=== PATIENT | female | born 1985 | race Caucasian/White ===

== ENCOUNTER 2020-07-04 17:20 | Emergency (ER) | payer OTHER ==
[~2020-07-04] VITALS: Ht 165.1 cm; Wt 68.0 kg
[2020-07-04 17:20] VITALS: BP 122/53
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
[2020-07-04] MEDS ORDERED: IBUPROFEN 400 MG TABLET. PO ONE (19:15)
[2020-07-04] MEDS ORDERED: CYCLOBENZAPRINE 10 MG TABLET. PO ONE (19:15)
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
[2020-07-04] MEDS ORDERED: NAPR-683 PO (20:21)
[2020-07-04] MEDS ORDERED: CYCL10TA2 PO (20:21)
== END 2020-07-04 20:38 | disposition home or self-care (01) ==
LOC: ER 17:20
DX: S16.1XXA Strain of muscle, fascia and tendon at neck level, initial encounter (principal); S06.0X0A Concussion without loss of consciousness, initial encounter; S09.8XXA Other specified injuries of head, initial encounter; R20.2 Paresthesia of skin; R11.0 Nausea; Z88.0 Allergy status to penicillin; V98.8XXA Other specified transport accidents, initial encounter; Y93.89 Activity, other specified; Y92.413 State road as the place of occurrence of the external cause; Y99.8 Other external cause status
CPT/HCPCS: 70450; 72125; 81025; 99285